=== PATIENT | male | born 1980 | race Caucasian/White ===

== ENCOUNTER 2017-03-03 21:59 | Inpatient (IN) | payer OTHER ==
[~2017-03-03] VITALS: Ht 193 cm; Wt 125.8 kg
[~2017-03-03 21:59] MED LIST: ALEVE220 M2 PO; LIBRIUM10 MG PO; RANITIDINE HCL150 MG PO
[2017-03-03 22:37] LABS: HEMATOCRIT 35.2 % (38.0-50.0); MCH 38.6 PG (29.0-34.0); MCHC 37.2 G/DL (30.0-36.0); MCV 103.8 FL (86-99); MEAN PLAT.VOLUME 10.4 uM^3 (9.0-12.4); NRBC (%) 0.2 /100 WBC (0-0); PLATELET COUNT 150 K/uL (156-360); RBC DIS.WIDTH-CV 14.6 % (11.8-14.6); RBC DIS.WIDTH-SD 55.6 % (39-53); RED BLOOD COUNT 3.39 M/uL (4.00-5.50); WHITE BLOOD COUNT 12.5 K/uL (4.1-10.2)
[2017-03-03 22:49] LABS: CHLORIDE 67 mEq/L (99-109); POTASSIUM 2.2 mEq/L (3.7-5.4); SODIUM 123 mEq/L (136-147)
[2017-03-03 22:50] LABS: GLUCOSE 193 mg/dL (70-99)
[2017-03-03 22:52] LABS: ANION GAP 34 MEQ/L (2-14)
[2017-03-03 22:54] LABS: GFR ESTIMATE (CALCULATED) > 59 mL/min/
[2017-03-03 22:55] LABS: UREA NITROGEN (BUN) 8 mg/dL (9-23)
[2017-03-03 23:34] LABS: MAGNESIUM 1.7 mg/dL (1.3-2.7)
[2017-03-03 23:38] LABS: TOTAL BILIRUBIN 5.7 mg/dL (0.0-1.0)
[2017-03-03 23:39] LABS: ALKALINE PHOSPHATASE 256 IU/L (3-129); SERUM ETHYL ALCOHOL < 10 mg/dL
[2017-03-03 23:41] LABS: DIRECT BILIRUBIN 3.5 mg/dL (0.0-0.3)
[2017-03-03 23:42] LABS: SALICYLATE < 5.0 MG/DL (15-30)
[2017-03-03 23:43] LABS: LIPASE 256 U/L (1.0-51.0)
[2017-03-04 00:23] LABS: INTER. NORMALIZED RATIO 1.3; PROTHROMBIN TIME 13.1 (9.2-11.2)
[2017-03-04] MEDS ORDERED: VITAMIN C250 MG PO (01:58)
[2017-03-04] MEDS ORDERED: VITAMIN B-12250 MCG PO (01:58)
[2017-03-04 02:18] LABS: SODIUM 127 mEq/L (136-147)
[2017-03-04 02:20] LABS: GLUCOSE 132 mg/dL (70-99)
[2017-03-04 02:22] LABS: ANION GAP 23 MEQ/L (2-14)
[2017-03-04 02:24] LABS: GFR ESTIMATE (CALCULATED) > 59 mL/min/
[2017-03-04 02:25] LABS: UREA NITROGEN (BUN) 7 mg/dL (9-23)
[2017-03-04 02:31] LABS: CHLORIDE 78 mEq/L (99-109); POTASSIUM 2.2 mEq/L (3.7-5.4)
[2017-03-04 04:05] LABS: ADD MIUA? NO; BILIRUBIN NEGATIVE; BLOOD NEGATIVE; COLOR AMBER ((YELLOW)); GLUCOSE (STRIP) NEGATIVE; KETONES 20; LEUKOCYTES NEGATIVE; NITRITE NEGATIVE; PROTEIN (STRIP) NEGATIVE; SPECIFIC GRAVITY 1.039 (1.000-1.030); UCUL ADDED? NO
[2017-03-04 04:16] LABS: AMPHETAMINE NEGATIVE (500 ng/mL); BARBITURATES NEGATIVE (200 ng/mL); BENZODIAZEPINES NEGATIVE (150 ng/mL); COCAINE NEGATIVE (150 ng/mL); INTERNAL CONTROLS VALID? YES; METHADONE NEGATIVE (200 ng/mL); METHAMPHETAMINE NEGATIVE (500 ng/mL); OPIATES (MORPHINE) NEGATIVE (100 ng/mL); OXYCODONE NEGATIVE (100 ng/mL); PHENCYCLIDINE NEGATIVE (25 ng/mL); PROPOXYPHENE NEGATIVE (300 ng/mL); THC CANNABINOIDS NEGATIVE (50 ng/mL); TRICYCLIC ANTIDEPRESSANTS NEGATIVE (300 ng/mL)
[2017-03-04 05:33] LABS: MAGNESIUM 1.2 mg/dL (1.3-2.7); POTASSIUM 2.1 mEq/L (3.7-5.4)
[2017-03-04 09:29] LABS: EOSINOPHIL (%) 0.1 % (0-5); IMMATURE GRANULOCYTE (%) 0.6 % (0.0-0.7); INSTRUMENT ABS NEUTROPHIL CT 5.3 K/uL; MCH 38.2 PG (29.0-34.0); MCHC 36.2 G/DL (30.0-36.0); MCV 105.5 FL (86-99); MONOCYTE (%) 6.6 % (3-12); MONOCYTE COUNT 0.5 K/uL (0-0.8); NEUTROPHIL (%) 78.6 % (45-76); NEUTROPHIL COUNT 5.3 K/uL (1.8-6.4); RBC DIS.WIDTH-CV 15.1 % (11.8-14.6); RBC DIS.WIDTH-SD 58.4 % (39-53); RED BLOOD COUNT 2.75 M/uL (4.00-5.50)
[2017-03-04 09:30] LABS: CHLORIDE 84 mEq/L (99-109); SODIUM 129 mEq/L (136-147); WHITE BLOOD COUNT 6.8 K/uL (4.1-10.2)
[2017-03-04 09:32] LABS: GLUCOSE 133 mg/dL (70-99); POTASSIUM 2.2 mEq/L (3.7-5.4)
[2017-03-04 09:34] LABS: ANION GAP 16 MEQ/L (2-14)
[2017-03-04 09:36] LABS: ALKALINE PHOSPHATASE 186 IU/L (3-129); GFR ESTIMATE (CALCULATED) > 59 mL/min/
[2017-03-04 09:37] LABS: UREA NITROGEN (BUN) 6 mg/dL (9-23)
[2017-03-04 10:03] LABS: HBSG INDEX 0.19; HPCA INDEX 0.13
[2017-03-04 10:04] LABS: ANTI-HEPATITIS A VIRUS (IGM) Nonreactive; HAV INDEX 0.13
[2017-03-04 10:05] LABS: ANTI-HEPATITIS B CORE (IGM) Nonreactive; HBC IgM INDEX 0.13
[2017-03-04 10:08] LABS: MEAN PLAT.VOLUME 9.9 uM^3 (9.0-12.4); PLAT.SUFFICIENCY DECREASED
[2017-03-04 10:18] LABS: PLATELET COUNT 101 K/uL (156-360)
[2017-03-04 15:07] VITALS: BP 120/60
[2017-03-04 15:47] VITALS: BP 120/60
[2017-03-04 19:28] VITALS: BP 113/56
[2017-03-04 21:21] LABS: MAGNESIUM 2.3 mg/dl (1.3-2.7); POTASSIUM 2.6 MEQ/L (3.7-5.4)
[2017-03-04 23:50] VITALS: BP 112/55
[2017-03-05 04:29] VITALS: BP 112/66
[2017-03-05 06:23] LABS: EOSINOPHIL (%) 1.2 % (0-5); EOSINOPHIL COUNT 0.1 K/uL (0-0.3); HEMATOCRIT 26.6 % (38.0-50.0); IMMATURE GRANULOCYTE (%) 1.2 % (0.0-0.7); IMMATURE GRANULOCYTE COUNT 0.1 K/uL; INSTRUMENT ABS NEUTROPHIL CT 4.3 K/uL; LYMPHOCYTE COUNT 1.2 K/uL (1.0-2.8); MCH 38.6 PG (29.0-34.0); MCHC 35.7 G/DL (30.0-36.0); MCV 108.1 FL (86-99); MEAN PLAT.VOLUME 10.4 uM^3 (9.0-12.4); MONOCYTE (%) 6.7 % (3-12); MONOCYTE COUNT 0.4 K/uL (0-0.8); NEUTROPHIL (%) 71.2 % (45-76); NEUTROPHIL COUNT 4.3 K/uL (1.8-6.4); PLATELET COUNT 110 K/uL (156-360); RBC DIS.WIDTH-CV 15.8 % (11.8-14.6); RBC DIS.WIDTH-SD 62.9 % (39-53); RED BLOOD COUNT 2.46 M/uL (4.00-5.50)
[2017-03-05 06:54] LABS: CHLORIDE 91 MEQ/L (99-109); GFR ESTIMATE (CALCULATED) > 59 mL/min/; GLOBULINS 2.2 G/DL (2.3-3.5); GLUCOSE 130 mg/dL (70-99); POTASSIUM 2.7 MEQ/L (3.7-5.4); SODIUM 133 MEQ/L (136-147); TOTAL BILIRUBIN 7.1 MG/DL (0.0-1.0); UREA NITROGEN (BUN) 6 mg/dL (9-23)
[2017-03-05 06:55] LABS: ALKALINE PHOSPHATASE 190 IU/L (3-129); AMYLASE 27 IU/L (1-118); ANION GAP 13 MEQ/L (2-14); LIPASE 202 U/L (1.0-51.0); SAMPLE HEMOLYSIS CHECK 0; SAMPLE ICTERIC CHECK 2; SAMPLE LIPEMIA CHECK 0
[2017-03-05 08:24] VITALS: BP 108/57
[2017-03-05 08:34] LABS: FERRITIN 1516 NG/ML (22-322)
[2017-03-05 08:45] LABS: MAGNESIUM 2.2 mg/dl (1.3-2.7)
[2017-03-05 11:24] VITALS: BP 117/57
[2017-03-05 15:35] VITALS: BP 101/55
[2017-03-05 19:43] VITALS: BP 116/56
[2017-03-05 23:42] VITALS: BP 98/50
[2017-03-06 03:48] VITALS: BP 113/76
[2017-03-06 06:40] LABS: EOSINOPHIL (%) 2.7 % (0-5); EOSINOPHIL COUNT 0.2 K/uL (0-0.3); HEMATOCRIT 27.2 % (38.0-50.0); IMMATURE GRANULOCYTE (%) 2.3 % (0.0-0.7); IMMATURE GRANULOCYTE COUNT 0.2 K/uL; INSTRUMENT ABS NEUTROPHIL CT 5.2 K/uL; LYMPHOCYTE COUNT 1.6 K/uL (1.0-2.8); MCH 38.7 PG (29.0-34.0); MCHC 35.3 G/DL (30.0-36.0); MCV 109.7 FL (86-99); MEAN PLAT.VOLUME 10.3 uM^3 (9.0-12.4); MONOCYTE (%) 6.3 % (3-12); MONOCYTE COUNT 0.5 K/uL (0-0.8); NEUTROPHIL (%) 67.5 % (45-76); NEUTROPHIL COUNT 5.2 K/uL (1.8-6.4); NRBC (%) 0.6 /100 WBC (0-0); RBC DIS.WIDTH-CV 16.5 % (11.8-14.6); RBC DIS.WIDTH-SD 66.1 % (39-53); RED BLOOD COUNT 2.48 M/uL (4.00-5.50); WHITE BLOOD COUNT 7.8 K/uL (4.1-10.2)
[2017-03-06 06:44] LABS: PLATELET COUNT 144 K/uL (156-360)
[2017-03-06 06:54] LABS: INTER. NORMALIZED RATIO 1.3; PROTHROMBIN TIME 12.8 (9.2-11.2); PTT 25.7 (25-32)
[2017-03-06 06:59] LABS: ALKALINE PHOSPHATASE 208 IU/L (3-129); ANION GAP 9 MEQ/L (2-14); CHLORIDE 92 MEQ/L (99-109); DIRECT BILIRUBIN 3.7 mg/dL (0.0-0.3); GFR ESTIMATE (CALCULATED) > 59 mL/min/; GLUCOSE 124 mg/dL (70-99); POTASSIUM 3.4 MEQ/L (3.7-5.4); SAMPLE HEMOLYSIS CHECK 0; SAMPLE ICTERIC CHECK 2; SAMPLE LIPEMIA CHECK 0; SODIUM 133 MEQ/L (136-147); TOTAL BILIRUBIN 6.3 MG/DL (0.0-1.0); UREA NITROGEN (BUN) 4 mg/dL (9-23)
[2017-03-06 12:26] VITALS: BP 96/51
[2017-03-06 14:18] LABS: ALBUMIN 2.52 G/DL (3.6-4.9); ALBUMIN PERCENT 52.4 %; ALPHA-1 GLOBULIN 0.21 G/DL (0.15-0.40); ALPHA-1 PERCENT 4.3 %; ALPHA-2 GLOBULIN 0.59 G/DL (0.45-0.85); ALPHA-2 PERCENT 12.2 %; GAMMA PERCENT 16.1 %
[2017-03-06 16:59] VITALS: BP 123/75
[2017-03-06 18:28] VITALS: BP 124/85
[2017-03-06 20:00] VITALS: BP 130/72
[2017-03-07] VITALS: BP 131/79
[2017-03-07 04:00] VITALS: BP 101/59
[2017-03-07 07:11] LABS: MEAN PLAT.VOLUME 10.1 uM^3 (9.0-12.4); NRBC (%) 2.2 /100 WBC (0-0); PLATELET COUNT 186 K/uL (156-360)
[2017-03-07 07:33] LABS: ALKALINE PHOSPHATASE 242 IU/L (3-129); ANION GAP 6 MEQ/L (2-14); CHLORIDE 95 MEQ/L (99-109); GFR ESTIMATE (CALCULATED) > 59 mL/min/; GLUCOSE 126 mg/dL (70-99); LIPASE 142 U/L (1.0-51.0); POTASSIUM 3.4 MEQ/L (3.7-5.4); SAMPLE HEMOLYSIS CHECK 0; SAMPLE ICTERIC CHECK 2; SAMPLE LIPEMIA CHECK 0; SODIUM 136 MEQ/L (136-147); TOTAL BILIRUBIN 6.1 MG/DL (0.0-1.0); UREA NITROGEN (BUN) 4 mg/dL (9-23)
[2017-03-07 07:44] LABS: ABS NEUTROPHIL COUNT 6.9; ANISOCYTOSIS 2+; BAND NEUTROPHILS 2.7 % (0-8.0); BASOPHILS 2.7 %; EOSINOPHIL ABS CT 0.2; EOSINOPHILS 1.8 % (0-5.0); HEMATOCRIT 31.1 % (38.0-50.0); HEMATOLOGY COMMENT 1 SN; HYPOCHROMASIA 1+; INSTRUMENT ABS NEUTROPHIL CT 6.2 K/uL; MACROCYTES 2+; MCH 38.7 PG (29.0-34.0); MCHC 34.7 G/DL (30.0-36.0); MCV 111.5 FL (86-99); METAMYELOCYTES 3.5 %; NUCLEATED RBC'S 1.8; PLAT.SUFFICIENCY ADEQUATE; POLYCHROMASIA 1+; RBC DIS.WIDTH-CV 17.3 % (11.8-14.6); RBC DIS.WIDTH-SD 71.2 % (39-53); RED BLOOD COUNT 2.79 M/uL (4.00-5.50); SEG.NEUTROPHILS 68.1 % (46.0-76.0); WHITE BLOOD COUNT 9.8 K/uL (4.1-10.2)
[2017-03-07 07:51] VITALS: BP 143/65
[2017-03-07 11:25] VITALS: BP 104/59
[2017-03-07 15:28] VITALS: BP 91/51
[2017-03-07 20:00] VITALS: BP 106/58
[2017-03-08] VITALS: BP 106/59
[2017-03-08 03:46] VITALS: BP 99/52
[2017-03-08 08:10] VITALS: BP 110/63
[2017-03-08] MEDS ORDERED: XIFAXAN550 MG PO (10:39)
[2017-03-08] MEDS ORDERED: Chronulac,Cephulac,E PO (10:41)
[2017-03-08] MEDS ORDERED: THERAGRAN1 TABLET PO (10:41)
[2017-03-08 11:36] LABS: ANION GAP 9 MEQ/L (2-14); CHLORIDE 96 MEQ/L (99-109); GFR ESTIMATE (CALCULATED) > 59 mL/min/; GLUCOSE 163 mg/dL (70-99); POTASSIUM 3.4 MEQ/L (3.7-5.4); SAMPLE HEMOLYSIS CHECK 0; SAMPLE ICTERIC CHECK 1; SAMPLE LIPEMIA CHECK 0; SODIUM 133 MEQ/L (136-147); UREA NITROGEN (BUN) 6 mg/dL (9-23)
[2017-03-08 12:51] VITALS: BP 110/68
[2017-03-08] MEDS ORDERED: Thiamine,Vitamin B1 PO (13:55)
== END 2017-03-08 16:27 | disposition home or self-care (01) | DRG 897 ==
LOC: EME 21:59 → EDOF 03-04 03:23 → 4EAST 03-04 03:23 → 5SOUTH 03-06 18:15
PROVIDERS: Emergency Medicine; Hospitalist; Internal Medicine; Student in an Organized Health Care Education/Training Program
DX: F10.239 Alcohol dependence with withdrawal, unspecified (principal); K70.0 Alcoholic fatty liver; E87.2 Acidosis; K70.11 Alcoholic hepatitis with ascites; E66.9 Obesity, unspecified; Z68.33 Body mass index [BMI] 33.0-33.9, adult; K29.20 Alcoholic gastritis without bleeding; E53.8 Deficiency of other specified B group vitamins; R53.1 Weakness; E87.6 Hypokalemia; M87.051 Idiopathic aseptic necrosis of right femur; Z96.642 Presence of left artificial hip joint; K21.9 Gastro-esophageal reflux disease without esophagitis; D64.9 Anemia, unspecified; D69.6 Thrombocytopenia, unspecified; R17 Unspecified jaundice; E83.42 Hypomagnesemia
CPT/HCPCS: 70450; 71010; 74177; 76705; 80048; 80053; 80074; 80076; 81003; 81256 90; 82140; 82150; 82248; 82390; 82607; 82728; 82746; 83605; 83690; 83735; 83930; 84100; 84132 91; 84165; 84443; 84466; 85025; 85027; 85610; 85730; 86708 90; 87040; 93005; 99281; 99285; C9113; G0480; J1644; J2060; J2405; J2543; J3370; J3411; J3475; J3480; J7030; J7040; J7050